=== PATIENT | male | born 1960 | race Caucasian/White ===

== ENCOUNTER → 2018-07-15 12:08 | Outpatient (CLI) | payer MEDICARE, SELFPAY ==
--- NOTE | 2018-07-15 12:22 | RAD_ITS ---
STUDY: X-RAY - LUMBAR SPINE REASON FOR EXAM: Male, 58 years old. Back pain TECHNIQUE: 3 view(s) of the lumbar spine were obtained. COMPARISON: None FINDINGS: There are bilateral pedicle screws and posterior fusion hardware transfixing L2, L3 and L5. The hardware is intact. There are NO fractures or malalignments of the vertebral bodies. There is narrowing of the disc spaces at L2-L3, L3-L4. There is normal lumbar lordosis. Bony pelvis is intact. Soft tissues are unremarkable. RAD/Lumbar Spine 2 or 3 Views IMPRESSION: There is fusion hardware as described. There are degenerative disc changes as described. There is NO acute bony or soft tissue abnormality. Electronically Signed: Lyle Griffin MD at 4:12 EST , Service support ,
== END ==
LOC: RAD 12:12
PROVIDERS: Referring Provider Anesthesiology Pain Medicine; Visit Provider Anesthesiology Pain Medicine
DX: M54.9 Dorsalgia, unspecified (principal)
CPT/HCPCS: 72100

== ENCOUNTER → 2018-07-24 12:22 | Outpatient (CLI) | payer MEDICARE, SELFPAY ==
--- NOTE | 2018-07-24 12:27 | MRI_ITS ---
STUDY: MRI LUMBAR SPINE WITHOUT CONTRAST REASON FOR EXAM: Male, 58 years old. Lower back pain TECHNIQUE: Standardized fat and water weighted pulse sequences were obtained in the sagittal and axial planes. COMPARISON: None FINDINGS: T12-L1: Endplate spondylosis. Decreased disc height and small circumferential disc bulge. Degenerative changes of the bilateral facet joints. Mild narrowing of the central canal and bilateral intervertebral neural foramina. Normal lumbar lordosis. There is no substantial scoliosis. Normal conus medullaris that terminates at the L1 level L1-2: Endplate spondylosis. Decreased disc height and small circumferential disc bulge. Degenerative changes of the bilateral facet joints. Mild narrowing of the central canal and bilateral intervertebral neural foramina. L2-3: Posterior and anterior fusion in good alignment. Normal bilateral facet joints. Normal central canal and bilateral lateral recesses. Normal bilateral intervertebral neural foramina. L3-4: Posterior and anterior fusion in good alignment. Normal bilateral facet joints. Normal central canal. Mild left foramina narrowing due to left foraminal disc bulge. L4-5: Endplate spondylosis. Decreased disc height and small circumferential disc bulge. Degenerative changes of the bilateral facet joints. Mild narrowing of the central canal and bilateral intervertebral neural foramina. L5-S1: Normal endplates. Small midline disc bulge. Normal bilateral facet joints. Normal central canal and bilateral lateral recesses. Normal bilateral intervertebral neural foramina. Normal visualized sacral ala. Normal visualized paraspinous soft tissue structures. MRI/Spine Lumbar (Routine) IMPRESSION: Multilevel degenerative changes, as described above. Electronically Signed: Levi Scott MD at 20:26 EST Tel , Service support ,
== END ==
LOC: MRI 12:22
PROVIDERS: Referring Provider Anesthesiology Pain Medicine; Visit Provider Anesthesiology Pain Medicine
DX: M54.9 Dorsalgia, unspecified (principal); M79.606 Pain in leg, unspecified
CPT/HCPCS: 72148

== ENCOUNTER → 2018-09-22 13:40 | Outpatient (CLI) | payer MEDICARE, SELFPAY ==
[2018-09-22 14:40] LABS: Amphetamine Urine VISTA NEGATIVE (<1000 ng/mL); Barbiturate Urine VISTA NEGATIVE (< 200 ng/mL); Benzodiazepine Urine VISTA NEGATIVE (< 200 ng/mL); Cocaine Urine VISTA NEGATIVE (< 300 ng/mL); Ecstacy Urine VISTA NEGATIVE (< 500 ng/mL); Methadone Urine VISTA NEGATIVE (< 300 ng/mL); PCP Urine VISTA NEGATIVE (< 25 ng/mL); THC Urine VISTA NEGATIVE (< 50 ng/mL); Vista UDS pH Range 6
== END ==
PROVIDERS: Referring Provider Anesthesiology Pain Medicine; Visit Provider Anesthesiology Pain Medicine
DX: F11.20 Opioid dependence, uncomplicated (principal)
CPT/HCPCS: 80307